=== PATIENT | female | born 1990 | race Two or more races ===

== ENCOUNTER 2025-02-28 07:00 | Inpatient (IN) | payer MEDICAID, SELFPAY ==
[2025-02-28] VITALS (23 sets, daily range): BP systolic 95–150; BP diastolic 54–79; PULSE 62–144; RESP 16–100; TEMP 36.8–37; O2SAT 89–100; BMI 27.7
[2025-02-28 07:51] LABS: ROM Kit Exp Date# 01-18-28; ROM Kit Lot # 58104371; ROM Swab Mixed By: MEDIAL; Rupture of Fetal Membranes Positive (Negative); Swb Mxed in Solvent 1 min? Yes
[2025-02-28] MEDS: OXYTOCIN INJ 10 UNIT/ML VIAL IM (08:10)
--- NOTE | 2025-02-28 08:10 | ESHP_ITS ---
RE: HALIMA FOX : 1990 DATE OF ADMISSION: 02/28/2025 HISTORY OF PRESENT ILLNESS: This is a 34-year-old 4, para 3-0-0-3 with due date of 02/27 with intrauterine at 40 weeks and 1 days on 02/28 who presents for labor pains and is 5 cm dilated. She has gestational diabetes mellitus A1, well controlled. The patient denies any leaking or bleeding. She reports normal movement. Her care was complicated by gestational diabetes, which has been controlled throughout her . She had a group B strep urinary tract infection in the first trimester, which was treated. MEDICATIONS: multivitamin 1 p.o. daily. SOCIAL HISTORY: She denies any alcohol, drug use, or smoking. PAST MEDICAL HISTORY: Group B strep, urinary tract infection, first trimester gestational diabetes mellitus A1. OBSTETRIC HISTORY: In 2010, 37 weeks, normal vaginal delivery, 6-pound female, no complications; in 2015, 39 weeks, normal vaginal delivery, 6-pound female, no complications; in 2022, 39 weeks, normal vaginal delivery, 7-pound male, no complications. REVIEW OF SYSTEMS: Denies any headache, change in vision or right upper quadrant pain. She denies any chest pain, palpitations, shortness of breath or lower extremity pain. PHYSICAL EXAMINATION: VITAL SIGNS: Blood pressure 118/69, heart rate 88, respirations 18, temperature 98.6, weight 142 pounds. HEENT: Oropharynx and sclerae are clear. LUNGS: Clear to auscultation bilaterally. HEART: Regular rate and rhythm. ABDOMEN: Gravid consistent with estimated weight of 7.5 pounds. PELVIC: See RN notes. EXTREMITIES: Nontender. SKIN: No gross rashes or lesions. NEUROLOGIC: No focal deficit. ASSESSMENT AND PLAN: Intrauterine at 40 weeks 1 days on 02/28, gestational diabetes mellitus class A1, induction of labor, anticipated spontaneous vaginal delivery. Informed consent was obtained and the patient was made aware of the risks and complications of operative vaginal delivery and delivery and agrees with these modes of delivery if indicated. DT: 10:04:16 TT: 10:30:00 Ref: [id number] - TID: [id number] [facility]
[2025-02-28] MEDS: OXYTOCIN in NS 20 units 20 UNIT/1,000 ML BAG 125 UNIT IV (08:14)
[2025-02-28] MEDS: LIDOCAINE HCL 1% 20 ML VIAL INFL (08:15)
[2025-02-28] MEDS: IBUPROFEN TAB 400 MG TABLET 800 MG PO (08:37)
--- NOTE | 2025-02-28 09:04 | OBDSUM_ITS ---
Data ([facility]) Data Hx Section: No : 4 Term: 3 : 0 Livin Abortions: Spontaneous & Theraputic: 0 Delivery Data ([facility]) Labor Data Initiation of labor: Spontaneous Induction/Augmentation Agent: None ROM date: 02/28/25 ROM time: 08:02 Amniotic membrane rupture type: Spontaneous Amniotic fluid description: Clear Delivery Data EDC: 02/27/25 EDC calculated by:: LMP/early US confirmation Date of arrival to unit: 02/28/25 Time of arrival to unit: 07:40 Onset of labor date: 02/28/25 Onset of labor time: 04:00 Complete dilation date: 02/28/25 Complete dilation time: 08:00 delivery date: 02/28/25 delivery time: 08:08 Gestational age (weeks): 40 Gestational age (days): 1 Placenta delivery date: 02/28/25 Placenta delivery time: 08:14 Stage 1 total time: Labor - Stage 1 Duration 4 hours and 0 minutes Delivered by: Gali Fiore Delivery nurse: trino Evans nurse: fausto Offset Plate Preparation Supervisor at delivery: No Support person(s) at delivery: FOB Delivery Method Delivery method: Normal Vaginal Delivery Presentation: Vertex position: OA Anesthesia Type Anesthesia Type: Local Delivery Room Medications Delivery room medications: Pitocin 10 u IM, Pitocin 20 u IV and Cytotec 800 MN Placenta Placenta delivery description: Spontaneous (inspected, intact) Cord blood sent to lab: Yes cord blood collection: Cord Blood Type Episiotomy Episiotomy description: None Lacerations #1: Labial: bilateral ans PU Perineal repair Sutures used for repair: 3.0 Vicryl EBL Estimated blood loss (ml): 400 Umbilical Cord cord description: 3 Vessels and Nuchal Cord (x1) [place] Data ([facility]) Data order: 1 's gender: Male weight (gms): 3550 g Weight (pounds): 7 lbs and 13.2 ozs length: 48.26 cm 1 minute: 6 5 minutes: 9
[2025-02-28 09:17] LABS: Basophils # (Auto) 0.0 Thou/mm3 (0.0-0.2); Basophils % (Auto) 0 % (0-2.5); Eosinophils # (Auto) 0.0 Thou/mm3 (0.0-0.5); Eosinophils % (Auto) 0 % (0-10); Hematocrit 37.1 % (36.0-46.0); Hemoglobin 12.8 g/dL (12.0-16.0); Immature Granulocytes Auto 0.05 Thou/mm3 (0.00-0.00); Lymphocytes # (Auto) 2.0 Thou/mm3 (1.0-4.8); Lymphocytes % (Auto) 17 % (10-50); Mean Corpuscular HGB Conc 34.5 g/dl (31.0-37.0); Mean Corpuscular Hemoglobin 29.9 pg (25.0-35.0); Mean Corpuscular Volume 87 fL (80-100); Monocytes # (Auto) 0.7 Thou/mm3 (0.0-0.8); Monocytes % (Auto) 6 % (0-12); Neutrophils # (Auto) 9.3 Thou/mm3 (1.8-7.7); Neutrophils % (Auto) 77 % (37-80); Nucleated Red Blood Cell # 0.00 Thou/mm3 (0.00-0.00); Nucleated Red Blood Cell % 0 /100 WBC (0); Platelet Count 169 Thou/mm3 (140-440); RDW Standard Deviation 40.3 fL (36.4-46.3); Red Blood Count 4.28 Miln/mm3 (4.00-5.20); White Blood Count 12.2 Thou/mm3 (3.6-11.0)
[2025-02-28 09:52] LABS: Syphilis Nonreactive (Nonreactive)
--- NOTE | 2025-02-28 12:21 | PD.LDDS ---
DS: Providers Provider Date of admission: 02/28/25 07:40 Primary care physician: Physician No Primary/Family Admitting Provider: Jeferson Francis MD Attending Provider on Admission: Gali Fiore CNM Consults: 02/28/25 10:25 Referral Routine Comment: Attending Provider on DC: Jeferson Francis MD Discharging Provider: Jeferson Francis MD DS: Diagnosis Problem List Completed Was Problem List Reviewed/Reconciled?: Yes Summary/Hosp Course Peripartum Data Delivery Method: Normal Vaginal Delivery Episiotomy Description: None Time Spent with Patient Time attestation: Total time spent providing and/or coordinating discharge services: Exam Vital Signs Temp Pulse Resp BP Pulse Ox O2 Del Method 98.2 F 62 18 112/70 98 Room Air 02/28/25 11:29 02/28/25 11:29 02/28/25 11:29 02/28/25 11:29 02/28/25 11:29 02/28/25 11:29 Discharge Plan Plan Patient Disposition: HOME (Self Care) Patient condition on transfer: Stable Prescriptions/Referrals Prescriptions/Med Rec: New ibuprofen 600 mg tablet 600 mg PO Q6H PRN (Reason: pain) Qty: 30 0RF Continued prenat.vits,dina,wys-turu-ztouz Tablet 1 tab PO QDAY Referrals: No Primary/Family,Physician [Primary Care Provider] Patient/Caregiver Discharge Instructions Discharge Activity: activity as tolerated Other Discharge Activity Instructions:: Follow up office with Dr Francis in 6 wks. Rolando Francis en 6 semanas Education Materials: After a Vaginal , Breast Care After , Nutrition While Print Language: Bulgarian Activity Restrictions/Additional Instructions: PLEASE [employer]ALL[employer] LAB TECHNICIAN PRESCRIPTION SENT TO PHARMACY BY DR. FRANCIS. KEEP ALL APPOINTMENTS SCHEDULED. Stand Alone Forms: Monse Award Info., Patient Portal Info Letter Discharge Order Discharge Orders: Discharge (Routine); Ordered 03/01/25 Ordered By: Jeferson Francis Planned Discharge Date 03/01/25
[2025-02-28] MEDS: ACETAMINOPHEN 325 MG TABLET 650 MG PO (14:05)
[2025-02-28 18:28] LABS: Basophils # (Auto) 0.0 Thou/mm3 (0.0-0.2); Basophils % (Auto) 0 % (0-2.5); Eosinophils # (Auto) 0.1 Thou/mm3 (0.0-0.5); Eosinophils % (Auto) 0 % (0-10); Hematocrit 35.7 % (36.0-46.0); Hemoglobin 12.2 g/dL (12.0-16.0); Immature Granulocytes Auto 0.07 Thou/mm3 (0.00-0.00); Lymphocytes # (Auto) 2.1 Thou/mm3 (1.0-4.8); Lymphocytes % (Auto) 15 % (10-50); Mean Corpuscular HGB Conc 34.2 g/dl (31.0-37.0); Mean Corpuscular Hemoglobin 29.5 pg (25.0-35.0); Mean Corpuscular Volume 86 fL (80-100); Monocytes # (Auto) 1.1 Thou/mm3 (0.0-0.8); Monocytes % (Auto) 7 % (0-12); Neutrophils # (Auto) 10.8 Thou/mm3 (1.8-7.7); Neutrophils % (Auto) 77 % (37-80); Nucleated Red Blood Cell # 0.00 Thou/mm3 (0.00-0.00); Nucleated Red Blood Cell % 0 /100 WBC (0); Platelet Count 170 Thou/mm3 (140-440); RDW Standard Deviation 40.2 fL (36.4-46.3); Red Blood Count 4.13 Miln/mm3 (4.00-5.20); White Blood Count 14.1 Thou/mm3 (3.6-11.0)
[2025-02-28] MEDS: DOCUSATE SOD 100 MG CAPSULE PO (20:59)
[2025-03-01] VITALS: BP 116/77; PULSE 62; RESP 18; TEMP 36.9; O2SAT 98
[2025-03-01 03:38] VITALS: BP 111/64; PULSE 66; RESP 18; TEMP 36.5; O2SAT 98
--- NOTE | 2025-03-01 06:49 | ESPR_ITS ---
RE: HALIMA FOX : 1990 DATE OF SERVICE: 03/01/2025 SUBJECTIVE: day #1, the patient denies any problem or complaint. She is voiding. She is ambulating. She is tolerating a regular diet. She is passing flatus. She denies any excessive vaginal bleeding. She denies any dizziness or lightheadedness. She denies any chest pain, palpitations, shortness of breath, or lower extremity pain. OBJECTIVE: Vital Signs: Blood pressure is 111/64, heart rate 66, respirations 18, temperature is 97.7, pulse oximetry is 98% on room air. Lungs: Clear to auscultation bilaterally. Heart: Regular rate and rhythm. Abdomen: Fundus is firm and nontender. Extremities: Nontender. LABORATORY DATA: Hemoglobin pre-delivery is 12.8, post delivery is 12.2. ASSESSMENT: day #1, status post spontaneous vaginal delivery. PLAN: Discharge home. Discharge instructions were given. Follow up in the office in 6 weeks. DT: 06:36:07 TT: 06:48:00 Ref: [id number] - TID: [id number]
[2025-03-01] MEDS: IBUPROFEN TAB 400 MG TABLET 800 MG PO (07:21)
[2025-03-01 08:00] VITALS: BP 101/63; PULSE 71; RESP 16; TEMP 36.8; O2SAT 99
[2025-03-01] MEDS: DOCUSATE SOD 100 MG CAPSULE PO (08:39)
== END 2025-03-01 10:39 | disposition home or self-care (01) | DRG 560 ==
LOC: S4SX 09:04 → S4NX 11:04
PROVIDERS: Admitting Provider Specialist; Visit Provider Advanced Practice Midwife
DX: O48.0 Post-term pregnancy (principal); O24.420 Gestational diabetes mellitus in childbirth, diet controlled; B95.1 Streptococcus, group B, as the cause of diseases classified elsewhere; Z37.0 Single live birth; O98.82 Other maternal infectious and parasitic diseases complicating childbirth; O69.81X0 Labor and delivery complicated by cord around neck, without compression, not applicable or unspecified; Z3A.40 40 weeks gestation of pregnancy; O70.0 First degree perineal laceration during delivery; Z87.440 Personal history of urinary (tract) infections
CPT/HCPCS: 36415; 84112; 85025; 86780; 86850; 86900; 86901; J2590; J3490; S0191; A9270